=== PATIENT | male | born 1960 | race Caucasian/White ===

== ENCOUNTER → 2016-12-06 | Day surgery (SDC) | payer OTHER ==
[~2016-12-06] MED LIST: BUPIVACAINE HCL PF 0.5% 10 ML VIAL INFIL ONE; KETOROLAC TROMETHAMINE 30 MG/ML (IVP) VIAL IV PUSH ONE; LACTATED RINGER'S 1000 ML INJ 1,000 ML ONE; MIDAZOLAM HCL 2 MG/2 ML VIAL ONE; ONDANSETRON HCL 4 MG/2 ML VIAL IV PUSH ONE; PROPOFOL 200 MG/20 ML AMP IV ONE; ceFAZolin 2 GM PREMIX 50 ML ONE
--- NOTE | 2016-12-08 18:58 | MP ---
cc: STEFANIE BUSTILLOS DATE OF SURGERY: 12/06/2016. PREOPERATIVE DIAGNOSIS: Right foot extensor hallucis longus laceration. POSTOPERATIVE DIAGNOSIS: Right foot extensor hallucis longus laceration. OPERATIVE PROCEDURE PERFORMED: 1. Right foot extensor hallucis longus repair. 2. Pinning of the first metatarsophalangeal joint for stabilization MATERIALS Assorted of FiberWire and 0.062 K-wire and a graft jacket. SURGEON Dr. Stefanie Bustillos. BRIDGE RIGGER: None. INJECTABLES: 10 cc of 0.5% Marcaine plain. PATHOLOGY: None. ANESTHESIA: General. HEMOSTASIS: A Pneumatic calf tourniquet at 250 mmHg. ESTIMATED BLOOD LOSS: Less than 5 mL. COMPLICATIONS: None. INDICATIONS FOR THE PROCEDURE: Mr. Tovar is a 56-year-old male patient who lacerated his extensor hallucis longus tendon. The laceration was repaired in the emergency department and he was evaluated in my office. MRI confirmed the tear of the extensor hallucis longus. I did the clinical exam of the plantar-flexed hallux. I explained to the patient that the tendon had retracted somewhat. We spoke about all possible surgical plans and outcomes. The consent was signed and the procedures was explained. No guarantees were given. DESCRIPTION OF THE PROCEDURE IN DETAIL: Under mild sedation, the patient was brought into the operating room and placed on the operating table in a supine position. Following IV sedation, a pneumatic calf tourniquet was placed on the right calf. The foot was then scrubbed, prepped and draped in the usual aseptic manner. A linear longitudinal incision was created over the dorsal aspect of the right foot. There was a palpable delve and the previous horizontal scar from his laceration was noted. Dissection of skin and subcutaneous tissue with care being taken to identify and retract any major nerve or arterial vessel. The distal stump of the extensor hallucis longus was easily identified and appeared to be healthy in nature. Working from that point proximal, the rest of the tendon was identified. The proximal aspect of the tendon did have a substantial amount of hematoma within it and some striations. It was not as healthy as the most distal aspect. However this was throughout the entirety of the tendon that could be visualized in least 8 centimeters. The decision was made to used the patient's [place] tissue despite the bruising. A whipstitch was performed of the distal and proximal stump. They were then hand-tied together with excellent coaptation end-to-end and they were then reinforced with 3-0 FiberWire in a box stitch fashion. The area was washed with copious amounts of sterile saline. A right medical graft jacket was then placed around the area to help strengthen the tendon and provide a smooth surface and this was suture-anchored into the tendon with Monocryl and sewn closed with Monocryl as well. A 0.062 K-wire was then placed from the medial distal hallux to the proximal lateral first metatarsal in order to provide stabilization as the tendon heals. The area was then flushed with copious amounts of sterile saline and deep and subcutaneous tissues were closed using 3-0 Monocryl. The skin was closed using 3-0 Prolene. The pneumatic tourniquet was released. There was a prompt hyperemic response to all digits of the right foot. A sterile dressing of Adaptic, 4x4s and a well-padded posterior splint were applied. The patient tolerated the procedure and the anesthesia well. He will recover in the post-anesthesia care unit for a period of time before being discharged home with written and oral postoperative instructions. Stefanie TURPIN/XIMENA /5:12 PM /6:43 PM CUBA
== END | disposition home or self-care (01) ==
LOC: ESDC 07:38
PROVIDERS: ATTEND Podiatrist Foot & Ankle Surgery
DX: S96.121A Laceration of muscle and tendon of long extensor muscle of toe at ankle and foot level, right foot, initial encounter (principal)
CPT/HCPCS: 00400; 01470; 15275; 28208; J0690; J1885; J2250; J2405; J3010; J7120; Q4107